=== PATIENT | female | born 1985 | race Caucasian/White ===

== ENCOUNTER 2020-01-04 15:48 | Inpatient (IN) | payer OTHER ==
[~2020-01-04] VITALS: Ht 152.4 cm; Wt 3.2 kg
[2020-01-06] MEDS ORDERED: PRENATAL PLUS1 EAC1 PO (07:37)
== END 2020-01-09 13:26 | disposition home or self-care (01) | DRG 785 ==
LOC: OB/GYN 01-06 07:00 → O/R 01-06 07:00 → SURH 01-06 07:00 → OB/GYN 01-06 13:38 → SURH 01-06 15:06 → OB/GYN 01-09 13:26
PROVIDERS: ADMIT Specialist; ATTEND Specialist
PROC: 0UL70ZZ Occlusion of Bilateral Fallopian Tubes, Open Approach (ICD-10-PCS; 2020-01-06)
PROC: 4A1HXCZ Monitoring of Products of Conception, Cardiac Rate, External Approach (ICD-10-PCS; 2020-01-06)
PROC: 10D00Z1 Extraction of Products of Conception, Low, Open Approach (ICD-10-PCS; principal; 2020-01-06 07:00)
DX: O82 Encounter for cesarean delivery without indication (principal); Z3A.39 39 weeks gestation of pregnancy; Z37.0 Single live birth; Z30.2 Encounter for sterilization